=== PATIENT | female | born 1985 ===

== ENCOUNTER 2016-12-10 13:20 | Emergency (ER) | payer OTHER ==
[2016-12-10 13:51] VITALS: BMI 28.1
[2016-12-10 14:35] LABS: RBC URINE 1 /hpf (0-3); URINE BILIRUBIN NEGATIVE (NEGATIVE); URINE BLOOD NEGATIVE (NEGATIVE); URINE COLOR Straw (YELLOW); URINE GLUCOSE (UA) NORMAL (Normal); URINE KETONE NEGATIVE (NEGATIVE); URINE LEUKOCYTE ESTERASE TRACE Leu/uL (Negative); URINE PROTEIN NEGATIVE (NEGATIVE); URINE UROBILINOGEN NORMAL mg/dL (0.2-1.0)
[2016-12-10 14:37] LABS: WBC URINE 3 /hpf (0-5)
--- NOTE | 2016-12-10 15:39 | OBHP ---
Datetime: 12/10/2016 14:55 IP Adm Impression: , intrauterine ; No Active Labor IP Chief Complaint Other: pelvic pressure IP Admit Plan: Discharge home Admit Comment, IP Provider: chief complaint-pelvic pressure HPI 31 y/o at 29.3 wga with c/o pelvic pressure and vagianl discharge for last 4 days.Patient states she felt soem contractions yesterday.Patient saw dr carrillo today and was diagnsoed witn a va gianl infection-BV an dgive flagyl.sge was advised to come to hospital for nst course uncompicated PMH anxiet and depression PSH csection OBGYN HX ; csectionx2; hx of pre-eclampsia with first Social hx denies tobacco,alcohol or illcit drug use Exam see exam section UA done and neg for nitrites and le A/P 31 y/o at 29.3 wga with pelvic pressure and hx of contractions yesterday.Also with c/o va ginal discharge.Diagnosed with BV today.Cervix closed.UA done .Patient feels better with po fluids.Miller elena discharegd home.Patient given labor, pprom,re-eclampsia precautions follow up with dr carrillo in [address] carrillo Pelvic Type - PN: Adequate Extremities - PN: Normal Abdomen - PN: Normal Back - PN: Normal Lungs - PN: Normal Heart - PN: Normal Neurologic - PN: Normal General - PN: Normal Contraction Comments Provider: none Comments, ACOG Physical Exam: vulva no lesiosn cervix clsoed vagian small amount of creamy white discharge with fishy odor; clinically consistent with bv uterus gravid adnexa no adnexal tenderness urethra no discharge Gestation - Est Wks by US: 29.3 IP Hx Assessment: The History has been Reviewed and is Current EGA AdmitDate IP: 29.3 Vital Signs Provider: Reviewed IP Chief Complaint: Other FHR Category Provider Fetus A: Category I (Annotations: Data stored by CPN on behalf of user) Dilatation, Provider: 0 Effacement, Provider: thick Station, Provider: high Genitourinary Exam: Normal DTRs - PN: Normal
== END 2016-12-10 15:28 | disposition home or self-care (01) ==
LOC: C.EROB 13:20
DX: O23.593 Infection of other part of genital tract in pregnancy, third trimester (principal); N76.0 Acute vaginitis; Z3A.29 29 weeks gestation of pregnancy

== ENCOUNTER 2017-01-17 16:37 | Emergency (ER) | payer OTHER ==
--- NOTE | 2017-01-17 18:32 | OBHP ---
Datetime: 01/17/2017 18:18 IP Adm Impression: , intrauterine ; No Active Labor IP Admit Plan: Observation/Evaluation; Discharge home Admit Comment, IP Provider: 31yo with Prior c/sections, reports here today c/o of pelvic pressu re but no contractions. She denies any VB or LOF. Avelino any fever or chills . P t reports she has bee n taking fluids bcos she had some loose stools. TOCO- None, FHR- Category 1, Cx; Closed/30/-3, Vtx Assessment: IUP at 34wks with Pelvic pressure. No active labor. Plan: D/C home. F/U with Dr Jerry on Friday. Pelvic Type - PN: Adequate Extremities - PN: Normal Abdomen - PN: Normal Back - PN: Normal Breast - PN: Normal Lungs - PN: Normal Heart - PN: Normal Thyroid - PN: Normal Neurologic - PN: Normal HEENT - PN: Normal General - PN: Normal Presentation-Admit: Vertex FHR - Baseline A Provider: 155 Membranes, Provider: Intact Contraction Comments Provider: nONE Comments, ACOG Physical Exam: Abd: Soft, NT, BS- present Gestation - Est Wks by US: 34.6 EGA AdmitDate IP: 34.6 Vital Signs Provider: Reviewed IP Chief Complaint: Maternal discomfort NICHD Variability Prov Fetus A: Moderate 6-25bpm NICHD Accel Fetus A IP Provider: [id number] FHR Category Provider Fetus A: Category I NICHD Decel Fetus A IP Provider: None Dilatation, Provider: 0 Effacement, Provider: 30 Station, Provider: -3 Genitourinary Exam: Normal DTRs - PN: Normal
== END 2017-01-17 18:10 | disposition home or self-care (01) ==
LOC: C.EROB 16:37
DX: O26.893 Other specified pregnancy related conditions, third trimester (principal); Z3A.34 34 weeks gestation of pregnancy

== ENCOUNTER 2017-02-14 13:45 | Inpatient (IN) | payer OTHER ==
[~2017-02-14 13:45] MED LIST: Sodium Citrate/Citric Acid 15 ml Sol PO ONE
[2017-02-14] MEDS: Lactated Ringer's 1,000 ML IV SCH (15:00)
--- NOTE | 2017-02-14 15:06 | OBADHP ---
Datetime: 02/14/2017 15:02 Admit Comment, IP Provider: chief complaint-term ,scheduled csection HPI 31 y/o at 38 weeks and 6 days here for scheduled csection.Patient denies nausea, vomiting , vaginal bleeidng, leaking of fluid course uncompicated PMH anxiety and depression PSH csection OBGYN HX ; csectionx2; hx of pre-eclampsia with first Social hx denies tobacco,alcohol or illcit drug use exam see exam section A/P 31 y/o at 38.6 wga here for scheduled csection -admit -see orders Pelvic Type - PN: Adequate Extremities - PN: Normal Abdomen - PN: Normal Back - PN: Normal Lungs - PN: Normal Heart - PN: Normal Neurologic - PN: Normal General - PN: Normal Contraction Comments Provider: occ Gestation - Est Wks by US: 38.6 IP Hx Assessment: The History has been Reviewed and is Current Vital Signs Provider: Reviewed; Within Normal Limits IP Chief Complaint: Scheduled Section FHR Category Provider Fetus A: Category I Genitourinary Exam: Normal DTRs - PN: Normal EGA AdmitDate IP: 38.6 IP Adm Impression: Term, intrauterine ; No Active Labor IP Admit Plan: Admit to unit; Initiate Section protocol Datetime: 01/17/2017 18:18 Breast - PN: Normal Thyroid - PN: Normal HEENT - PN: Normal Presentation-Admit: Vertex FHR - Baseline A Provider: 155 Membranes, Provider: Intact Comments, ACOG Physical Exam: Abd: Soft, NT, BS- present NICHD Variability Prov Fetus A: Moderate 6-25bpm NICHD Accel Fetus A IP Provider: [id number] NICHD Decel Fetus A IP Provider: None Dilatation, Provider: 0 Effacement, Provider: 30 Station, Provider: -3 Datetime: 12/10/2016 14:55 IP Chief Complaint Other: pelvic pressure
[2017-02-14 15:36] LABS: BASO % 0.5 % (0.0-2.0); EOS % 0.4 % (0.0-4.0); HEMATOCRIT 35.7 % (34.0-47.0); LYMPH # 1.3 K/uL (1.0-4.3); LYMPH % 14.5 % (20.0-40.0); MEAN CORPUSCULAR HGB CONC 32.1 g/dL (33.0-37.0); MEAN PLATELET VOLUME 10.9 fL (7.2-11.7); MONO # 0.5 K/uL (0.0-0.8); MONO % 5.5 % (0.0-10.0); NRBC % 0.1 % (0.0-2.0)
[2017-02-14 15:41] LABS: MEAN CELL VOLUME 87.2 fL (81.0-99.0); WHITE BLOOD COUNT 9.2 K/uL (4.8-10.8)
[2017-02-14 15:43] LABS: RBC URINE < 1 /hpf (0-3); URINE BILIRUBIN NEGATIVE (NEGATIVE); URINE BLOOD NEGATIVE (NEGATIVE); URINE COLOR Yellow (YELLOW); URINE GLUCOSE (UA) NORMAL (Normal); URINE KETONE NEGATIVE (NEGATIVE); URINE LEUKOCYTE ESTERASE NEG Leu/uL (Negative); URINE PROTEIN NEGATIVE (NEGATIVE); URINE UROBILINOGEN NORMAL mg/dL (0.2-1.0); WBC URINE 2 /hpf (0-5)
[2017-02-14 15:44] LABS: CHLORIDE 105 mmol/L (98-107); POTASSIUM 3.8 mmol/L (3.6-5.2); SODIUM 135 mmol/L (132-148)
[2017-02-14 15:46] LABS: ALB/GLOB RATIO 0.9 (1.0-2.1); AST/SGOT 26 U/L (14-36); BILIRUBIN,TOTAL 0.8 mg/dL (0.2-1.3); CARBON DIOXIDE 20 mmol/L (22-30); GFR AFRICAN-AMERICAN > 60; TOTAL PROTEIN 6.2 g/dL (6.3-8.3)
[2017-02-14 15:47] LABS: ALKALINE PHOSPHATASE 184 U/L (38-126); ALT/SGPT 30 U/L (9-52); BLOOD UREA NITROGEN 6 mg/dL (7-17); CALCIUM 7.9 mg/dl (8.6-10.4); GLUCOSE,RANDOM 66 mg/dL (65-105)
[2017-02-14] MEDS ORDERED: Oxytocin 20 units in LR 2,000 ML IV ONE (17:19)
[2017-02-14] MEDS ORDERED: Morphine 1 mg/ml preservative-free Inj(Duramorph) ONE (17:26)
[2017-02-14] MEDS ORDERED: Sodium Citrate/Citric Acid 15 ml Sol ONE (17:29)
[2017-02-14] MEDS ORDERED: Oxytocin 10 Units/ml Inj ONE (17:48)
[2017-02-14] MEDS ORDERED: Oxycodone/Acetaminophen 5/325 mg Tab PO PRN ×2 (19:40)
[2017-02-15] MEDS: Lactated Ringer's 1,000 ML IV SCH (06:02)
[2017-02-15 07:56] LABS: BASO % 0.5 % (0.0-2.0); EOS % 0.3 % (0.0-4.0); HEMATOCRIT 27.7 % (34.0-47.0); LYMPH # 0.8 K/uL (1.0-4.3); LYMPH % 9.2 % (20.0-40.0); MEAN CELL VOLUME 87.1 fL (81.0-99.0); MEAN CORPUSCULAR HEMOGLOBIN 28.5 pg (27.0-31.0); MEAN CORPUSCULAR HGB CONC 32.7 g/dL (33.0-37.0); MEAN PLATELET VOLUME 10.9 fL (7.2-11.7); MONO # 0.5 K/uL (0.0-0.8); MONO % 5.6 % (0.0-10.0); NRBC % 0.1 % (0.0-2.0); RED CELL DISTRIBUTION WIDTH 15.7 % (11.5-14.5); WHITE BLOOD COUNT 8.2 K/uL (4.8-10.8)
[2017-02-15 08:10] LABS: PLATELET COUNT 126 K/uL (130-400)
[2017-02-15] MEDS: Simethicone 80 mg Chewtab PO SCH ×5 (09:29→21:05)
[2017-02-15 09:40] LABS: EOSINOPHIL 1 % (0-4); NEUTROPHIL 84 % (50-75); TOTAL CELLS COUNTED 100
[2017-02-15 09:42] LABS: LARGE PLATELETS PRESENT
[2017-02-15 09:43] LABS: GIANT PLATELETS PRESENT
--- NOTE | 2017-02-15 10:41 | OP ---
PROCEDURE DATE: 02/14/2017 PREOPERATIVE DIAGNOSES: A 31-year-old female, 3, para 2 at 39 weeks gestation for repeat C-s ection. POSTOPERATIVE DIAGNOSES: A 31-year-old female, 3, para 2 at 39 weeks gestation for repeat C- section. PROCEDURE: Repeat and lysis of adhesions. TYPE OF ANESTHESIA: Spinal. ESTIMATED BLOOD LOSS: 600 mL. COMPLICATIONS: None. FINDINGS: Female infant in cephalic presentation, right occipital posterior. Apgars were 9 and 9. Noted to have a normal uterus but multiple adhesions. Lysis of adhesions performed. Normal tubes an d ovaries. PROCEDURE: The patient was a 31-year-old female, 3, para 2 who had 2 previous C-sections and presented to labor and delivery for an elective repeat . She was informed of the risk fact ors, benefits, and alternatives. Risk factors included infection, bleeding, damage to surrounding or patrick and tissue, complication from anesthesia and possible . All questions were answered and in formed consent was obtained prior to proceeding with the procedure. Once the patient signed the cons ent, she was then taken to the operating room where a spinal anesthesia was found to be adequate. Th e patient was prepped and draped in normal sterile fashion in a dorsosupine position with a leftward tilt. A Pfannenstiel skin incision was made with the scalpel and carried to the underlying layers of the fascia using the Bovie. The fascia was then excised in the midline and extended laterally using Garland scissors. Kyrie clamps were used to elevate the superior aspect of the fascial incision, whic h was elevated, and the underlying rectus muscle was dissected off bluntly. Attention was then turne d to the inferior aspect of the fascial incision, which in a similar fashion was grasped with Kyrie clamps and elevated, and the rectus muscle dissected off bluntly. The rectus muscle was then dissect ed in the midline. Two Allises were used in the center, it was picked up and entered sharply using a 15 blade. The peritoneum was then dissected superiorly and inferiorly with good visualization of th e bladder. The bladder blade was inserted. It was noted that she had a couple of adhesions so lysis of adhesion was performed. At that particular point, it was noted to make an incision in the lower uterine segment, was incised in a transverse fashion and extended using manual traction. Clear fluid was noted. The was subsequently delivered atraumatically. The nose and the mouth were sucti oned with the bulb suction. The cord was clamped and cut. The was subsequently handed to the awaiting rn psych. Next, the cord blood was obtained, the uterus incision was closed and repair ed with 2 layers using 0 Vicryl. Hemostasis was assured. The uterus was returned to the abdomen and the pelvis was irrigated copiously. The uterine incision was reexamined and was noted to be hemosta tic. The rectus muscle was reapproximated in the midline using 0 chromic. The fascia was then close d with 0 Vicryl. The subcutaneous layer was reapproximated with 2-0 plain and the skin was closed wi th 3-0 Monocryl. Sponge, lap and needle counts were correct x 2. The patient tolerated the procedur e well. Again, estimated blood loss 600 mL, IV fluid was a liter and a half. URINE OUTPUT: 100 mL. The patient was then taken to recovery in stable condition. Carmen Jerry MD cc: [id number] TT: 02/15/2017 10:40:29 jn
--- NOTE | 2017-02-15 13:54 | OBPPN ---
Datetime: 02/15/2017 13:53 PP Pain Prov: Within normal limits PP Nausea Prov: Denies PP Flatus Prov: Yes PP Breasts Prov: Normal PP Heart Prov: Normal PP Lungs Prov: Normal PP Abdomen/Uterus Prov: Normal PP Lochia Prov: Normal PP Vulva/Perineum Prov: Normal PP CVA Tenderness Prov: Normal PP Extremities Prov: Normal PP Impression Prov: Normal progression
[2017-02-15] MEDS ORDERED: oxyCODONE 5 mg Immediate Release Tab PO PRN (14:24)
[2017-02-16] MEDS ORDERED: Oxycodone/Acetaminophen 5/325 mg Tab PO PRN (01:03)
[2017-02-16] MEDS: Oxycodone/Acetaminophen 5/325 mg Tab PO PRN ×6 (01:24→23:08)
[2017-02-16 07:53] VITALS: O2SAT 99
[2017-02-16] MEDS: Simethicone 80 mg Chewtab PO SCH ×3 (09:47→23:35)
[2017-02-16 15:24] VITALS: BP 134/87; PULSE 86; RESP 20; TEMP 97.7
[2017-02-17] MEDS: Oxycodone/Acetaminophen 5/325 mg Tab PO PRN ×2 (06:00→13:51)
--- NOTE | 2017-02-17 09:01 | OBPPN ---
Datetime: 02/17/2017 08:59 PP Pain Prov: Within normal limits PP Nausea Prov: Denies PP Flatus Prov: Yes PP Breasts Prov: Normal PP Heart Prov: Normal PP Lungs Prov: Normal PP Abdomen/Uterus Prov: Normal PP Lochia Prov: Normal PP Vulva/Perineum Prov: Normal PP CVA Tenderness Prov: Normal PP Extremities Prov: Normal PP C/S Incision Prov: Normal PP Impression Prov: Normal progression PP Plan Prov: Discharge
--- NOTE | 2017-02-17 09:01 | OBDCSUM ---
Datetime: 01/17/2017 18:09 Follow up at, Provider: lorena Discharge Instructions, Provider: Routine instructions given Discharge Diagnosis, Provider: Term Delivered Follow up in weeks, Provider: 1wk Contraception discussed, Prov: Yes Disch Activity Restrictions: No exercising; No lifting; No driving; Minimize stair-climbing; No sexu al activity; Nothing in vagina - [place], tampons, douche
[2017-02-17] MEDS: Simethicone 80 mg Chewtab PO SCH ×4 (09:24→14:07)
== END 2017-02-17 17:30 | disposition home or self-care (01) | DRG 371 ==
LOC: C.4D 13:45 → C.4M 23:20
PROVIDERS: ADMIT Obstetrics & Gynecology; ATTEND Obstetrics & Gynecology
PROC: 10D00Z1 Extraction of Products of Conception, Low, Open Approach (ICD-10-PCS; principal; 2017-02-14)
DX: O34.211 Maternal care for low transverse scar from previous cesarean delivery (principal); O99.344 Other mental disorders complicating childbirth; F41.8 Other specified anxiety disorders; Z3A.38 38 weeks gestation of pregnancy; Z37.0 Single live birth

== ENCOUNTER 2019-01-10 19:48 | Emergency (ER) | payer OTHER ==
[2019-01-10 19:48] VITALS: BMI 28.1
[2019-01-10 19:55] VITALS: BP 125/82; PULSE 102; RESP 20; TEMP 98.7; O2SAT 98
--- NOTE | 2019-01-10 20:10 | C.PDOC ---
History Of Present Illness 33-year-old female presents to the ED for evaluation of left hip pain which began yesterday. Patient states she went into a pool while at a water park two days ago, but denies any known trauma. Patient noticed that her right hip was swollen the next day and had pain which she rates as 4/10 in severity. Patient presents to the ED today because her pain has progressively worsened. Patient states her pain has been radiating down her left leg since this morning, and presents to the ED for further evaluation. Patient is ambulatory with a limp and denies fever, chills, extremity numbness/weakness or tingling. She has not taken anything for her pain. Chief Complaint (Nursing): Hip Pain History Per: Patient History/Exam Limitations: no limitations Onset/Duration Of Symptoms: Hrs Current Symptoms Are (Timing): Worse Additional History Per: Patient - Hip Description Of Injury: denies: Fell, Tripped, Lost Balance, Fainted Past Medical History Reviewed: Historical Data, Nursing Documentation, Vital Signs Vital Signs: Last Vital Signs Temp 98.7 F 01/10/19 19:49 Pulse 102 H 01/10/19 19:49 Resp 20 01/10/19 19:49 BP 125/82 01/10/19 19:49 Pulse Ox 98 01/10/19 19:49 Primary Care Provider: oClin Conteh - Medical History PMH: Anxiety, Asthma, COPD Denies: Depression, Diabetes, HTN Surgical History: No Surg Hx - [facility] Procedures EXTRACTION OF POC, LOW CERVICAL, OPEN APPROACH (02/14/17) Family History: States: Unknown Family Hx - Social History Hx Tobacco Use: Yes (2-3 CIG/DAY) Hx Alcohol Use: Yes (SOC) Hx Substance Use: Yes (MARIJUANA) - Immunization History Hx Tetanus Toxoid Vaccination: No Hx Influenza Vaccination: No Hx Pneumococcal Vaccination: No Review Of Systems Constitutional: Negative for: Fever, Chills Musculoskeletal: Positive for: Leg Pain (left), Other (left hip pain ) Neurological: Negative for: Weakness, Numbness Physical Exam - Physical Exam Appears: Non-toxic, No Acute Distress Skin: Normal Color, Warm, Dry Head: Atraumatic, Normacephalic Oral Mucosa: Moist Neck: Supple Chest: Symmetrical, No Deformity, No Tenderness Cardiovascular: Rhythm Regular, No Murmur Respiratory: Normal Breath Sounds, No Rales, No Rhonchi, No Wheezing Extremity: No Normal ROM (limited in left hip, secondary to pain ), Capillary Refill (less than 2 seconds ), No Deformity, No Swelling Pulses: Left Dorsalis Pedis: Normal, Right Dorsalis Pedis: Normal Neurological/Psych: Oriented x3, Normal Speech, Normal Cognition, Normal Motor, Normal Sensation Gait: Other (limping) ED Course And Treatment O2 Sat by Pulse Oximetry: 98 (on RA) Pulse Ox Interpretation: Normal Medical Decision Making Medical Decision Making: Impression: 33 year old female with left hip pain Plan: Flexeril PO, Toradol IM and Lidoderm TD administered. Hip XR ordered and reviewed- unremarkable On reassessment, patient is resting comfortably, showing no signs of distress and reports an improvement in her pain. Patient is stable for discharge and is advised to f/u with her PMD within 1-2 days for further evaluation. Disposition Counseled Patient/Family Regarding: Studies Performed, Diagnosis, Need For Followup, Rx Given - Disposition Referrals: Colin Conteh MD [Staff Provider] - Disposition: HOME/ ROUTINE Disposition Time: 20:54 Condition: IMPROVED Additional Instructions: Continue meds as prescribed Rest and Ice the area Follow up with PMD - MRI may be ordered to r/o Sciatica Return to the ED if symptoms worsen Prescriptions: Cyclobenzaprine [Flexeril] 10 mg PO TID PRN #15 tab PRN Reason: Muscle Spasm Lidocaine 5% [Lidoderm] 1 ea TD DAILY PRN #30 patch PRN Reason: Pain, Moderate (4-7) Naproxen [Naprosyn] 500 mg PO BID #30 tablet Instructions: Sciatica (DC), Hip Pain (DC), Sciatica Exercises Forms: [employer] (Tajik), Work Excuse - Clinical Impression Clinical Impression: Hip pain, Sacral back pain - PA / [employer] / Resident Statement MD/DO has reviewed & agrees with the documentation as recorded. - Scribe Statement The provider has reviewed the documentation as recorded by the Scribe (Ariella Jordan) All medical record entries made by the Scribe were at my direction and personally dictated by me. I have reviewed the chart and agree that the record accurately reflects my personal performance of the history, physical exam, medical decision making, and the department course for this patient. I have also personally directed, reviewed, and agree with the discharge instructions and disposition.
[2019-01-10] MEDS ORDERED: Lidocaine 5% Patch TD STA (20:14)
[2019-01-10] MEDS ORDERED: Lidocaine 5% Patch TD ONE (20:20)
--- NOTE | 2019-01-11 10:50 | RAD ---
PROCEDURE: Left Hip X-ray Radiographs. HISTORY: pain COMPARISON: None. TECHNIQUE: 2 views obtained. FINDINGS: BONES: Normal. No fracture. JOINTS: Normal. SOFT TISSUES: IUD noted centrally within the pelvis. OTHER FINDINGS: None. IMPRESSION: Normal left hip radiographs.
== END 2019-01-10 21:03 | disposition home or self-care (01) ==
LOC: C.ER 19:48
DX: M25.552 Pain in left hip (principal); M54.89 Other dorsalgia
CPT/HCPCS: 73502; 81025; 96372; 99284; J1885